=== PATIENT | male | born 1970 | race Caucasian/White ===

== ENCOUNTER → 2016-10-13 | Outpatient (CLI) | payer OTHER ==
[~2016-10-13] MED LIST: HYDR-3719 PO; MOBI15TA PO
--- NOTE | 2016-10-13 10:31 | PFTRPT ---
Tech: Yunier Meza TAKE OFF MAN Age: 46 Sex: Male Race: Height: 69.00 Inches Weight: 248.00 Lbs BSA: 2.26 Diagnosis: SOB PULMONARY FUNCTION REPORT ORDERING PROVIDER: Debbie Antonio NP DATE OF SERVICE: 10/13/16 SPIROMETRY: Pre and post bronchodilator study of excellent technical quality. The forced vital capacity is reduced. The FEV1 is in proportion. The obstructive index is, therefore, normal. FLOW VOLUME LOOP: The expiratory limb of the flow volume loop does suggest flow rate limitation, however. Borderline bronchodilator response is identified. LUNG VOLUMES: The total lung capacity is reduced. The residual volume is borderline for air trapping. DIFFUSION CAPACITY: The diffusion capacity is normal. HEMOGLOBIN: No hemoglobin is available for correction. AIRWAY MECHANICS: Airways resistance and conductance are normal. IMPRESSION: Mild restrictive ventilatory impairment with concomitant underlying air trapping and borderline bronchodilator response. Please correlate clinically. MTDD
== END ==
LOC: M CARPUL 09:42
PROVIDERS: ATTEND Registered Nurse
DX: R06.02 Shortness of breath (principal); R94.2 Abnormal results of pulmonary function studies

== ENCOUNTER 2023-12-08 09:40 | Day surgery (SDC) | payer BC ==
[~2023-12-08] VITALS: Ht 180.3 cm; Wt 109.9 kg
[~2023-12-08 09:40] MED LIST changes: +AMLO1TAB25 PO; +CLAR10CA3 PO; +LOSA25TA13 PO; +SEMA2PEN PO
[2023-12-08] MEDS ORDERED: fentaNYL 250 MCG/5 ML INJECTION As Ordered ONE (10:02)
[2023-12-08] MEDS ORDERED: propofoL 200 MG/20 ML VIAL As Ordered ONE (10:03)
[2023-12-08] MEDS ORDERED: MIDAZOLAM INJ 2MG/2ML VIAL As Ordered ONE (10:03)
[2023-12-08] MEDS ORDERED: ROCURONIUM BROMIDE 50MG/5ML VIAL As Ordered ONE (10:03)
[2023-12-08] MEDS ORDERED: LIDOCAINE 2% 100MG/5ML SDV (FOR ANES.) As Ordered ONE (10:03)
[2023-12-08] MEDS ORDERED: SUGAMMADEX SODIUM 500 MG/5 ML VIAL (BRIDION) As Ordered ONE (10:05)
[2023-12-08] MEDS: ceFAZolin SOD 2 GM in IV 1 EA IV ONE (11:23)
[2023-12-08] MEDS ORDERED: ACETAMINOPHEN 1000MG 100ML IV BAG As Ordered ONE (11:53)
[2023-12-08] MEDS ORDERED: KETOROLAC 60MG 2ML VIAL As Ordered ONE (11:53)
[2023-12-08] MEDS ORDERED: ONDANSETRON 4MG 2ML VIAL As Ordered ONE (11:53)
[2023-12-08] MEDS ORDERED: ALBUTEROL 6.7GM INHALER **FOR ANES. CART/OMNICELL ONLY As Ordered ONE (13:02)
[2023-12-08] MEDS ORDERED: ONDANSETRON 4MG 2ML VIAL IV PRN (13:05)
[2023-12-08] MEDS ORDERED: fentaNYL 100 MCG/2 ML INJECTION IV PRN (13:05)
[2023-12-08] MEDS ORDERED: oxyCODONE 5MG TAB PO PRN (13:05)
[2023-12-08] MEDS ORDERED: NS 1,000 ML IV SCH (13:25)
[2023-12-08] MEDS: traMADol 50 MG TAB PO PRN (13:27)
[2023-12-08 14:10] VITALS: BP 133/71; TEMP 97.1; O2SAT 95
== END 2023-12-08 14:44 | disposition home or self-care (01) ==
LOC: M SDC 09:40
PROVIDERS: ATTEND Surgery
DX: K40.30 Unilateral inguinal hernia, with obstruction, without gangrene, not specified as recurrent (principal); E11.9 Type 2 diabetes mellitus without complications; I10 Essential (primary) hypertension; G47.30 Sleep apnea, unspecified; Z87.891 Personal history of nicotine dependence; Z79.899 Other long term (current) drug therapy; Z79.85 Long-term (current) use of injectable non-insulin antidiabetic drugs
CPT/HCPCS: 49650; C1781; J0131; J0665; J0690; J1100; J1885; J2250; J2405; J3010; S2900

== ENCOUNTER 2024-08-15 08:26 | Day surgery (SDC) | payer BC ==
[~2024-08-15] VITALS: Ht 180.3 cm; Wt 113.4 kg
[~2024-08-15 08:26] MED LIST changes: +ATOR1TAB21 PO; +LIDOCAINE 2% 100MG/5ML SDV (FOR ANES.) As Ordered ONE; +MELO7.5T35 PO; +METF500T13 PO; +VENTAER INH; +fentaNYL 100 MCG/2 ML INJECTION As Ordered ONE; +propofoL 200 MG/20 ML VIAL As Ordered ONE
[2024-08-15 09:24] VITALS: TEMP 97.6
[2024-08-15 10:00] VITALS: BP 133/78; O2SAT 98
== END 2024-08-15 10:16 | disposition home or self-care (01) ==
LOC: M OPP 08:26
PROVIDERS: ATTEND Surgery
DX: Z12.11 Encounter for screening for malignant neoplasm of colon (principal); K63.5 Polyp of colon; K64.2 Third degree hemorrhoids; D50.9 Iron deficiency anemia, unspecified; G47.30 Sleep apnea, unspecified; Z79.84 Long term (current) use of oral hypoglycemic drugs; Z79.85 Long-term (current) use of injectable non-insulin antidiabetic drugs; Z79.899 Other long term (current) drug therapy; J45.909 Unspecified asthma, uncomplicated
CPT/HCPCS: 43235; 45385; 88305; J3010